=== PATIENT | female | born 1960 | race African-American/Black ===

== ENCOUNTER 2017-08-17 07:44 | Emergency (ER) | payer BC, SELFPAY ==
--- NOTE | 2017-08-17 08:22 | RAD ---
TWO VIEWS OF THE CHEST: COMPARISON: 02/23/2017 HISTORY: Chest pain and asthma. FINDINGS: Two views of the chest show normal sized cardiomediastinal silhouette. There is no evidence of conso lidation, mass, or pleural effusion. The bones are unremarkable. IMPRESSION: No evidence of acute cardiopulmonary disease. POS: [facility]
[2017-08-17] MEDS ORDERED: methylPREDNISolone Sod Succ/PF 125 MG/2 ML VIAL ONE (08:48)
[2017-08-17] MEDS ORDERED: Water For Inject, Bacteriostat 30 ML ONE (08:49)
== END 2017-08-17 09:35 | disposition home or self-care (01) ==
LOC: ERS 07:44
DX: J45.901 Unspecified asthma with (acute) exacerbation (principal); I10 Essential (primary) hypertension; Z79.899 Other long term (current) drug therapy
CPT/HCPCS: 71020; 93005; 94640; 96372; J2930; J7620

== ENCOUNTER 2018-03-17 19:00 | Inpatient (IN) | payer BC, SELFPAY ==
[2018-03-17] MEDS ORDERED: Lidocaine Viscous Sol 2% 15 ml UD Cup ONE (19:28)
[2018-03-17 20:22] LABS: #Basophils 0.1 thou/uL (0.0-0.2); #Eosinphils 0.1 thou/uL (0.0-0.7); #Lymphocytes 2.6 thou/uL (1.20-3.40); #Monocytes 0.7 thou/uL (0.11-0.59); #Neutrophils 3.5 thou/uL (1.40-6.50); %Basophils 1.3 % (0.0-1.0); %Lymphocytes 36.7 % (21.0-51.0); %Monocytes 10.2 % (0.0-10.0); %Neutrophils 49.8 % (42.0-75.0); Hemoglobin 13.4 g/dL (12.0-16.0); Mean Corpuscular Hemoglobin 30.7 pg (27.0-31.0); Mean Corpuscular Volume 87.6 fl (81.0-99.0); Mean Platelet Volume 8.7 fL (7.4-10.4); Platelet Count 204 thou/uL (130-400); RBC Distribution Width 11.7 % (11.5-14.5); Red Blood Cell (RBC) Count 4.36 mill/uL (4.20-5.40)
[2018-03-17] MEDS ORDERED: Ketorolac Tromethamine 30 MG/ML VIAL ONE (20:24)
[2018-03-17 20:41] LABS: ALT (SGPT) 59 U/L (8-55); AST (SGOT) 53 U/L (5-34); Albumin 4.2 g/dL (3.5-5.0); Alkaline Phosphatase 160 U/L (40-150); Anion Gap 24 mmol/L (10-20); BUN (Urea Nitrogen) 22 mg/dL (9.8-20.1); Bilirubin, Total 0.6 mg/dL (0.2-1.2); Calc. Creatinine Clearance 0 mL/min (70-130); Calcium 10.1 mg/dL (7.8-10.44); Carbon Dioxide 12 mmol/L (22-29); Chloride 100 mmol/L (98-107); Estimated GFR-MDRD 47; Globulin 4.4 g/dL (2.4-3.5); Protein, Total 8.6 g/dL (6.0-8.3); Sodium 131 mmol/L (136-145)
[2018-03-17 20:43] LABS: Glucose 555 mg/dL (70-105)
[2018-03-17 20:46] LABS: CKMB 2.5 ng/mL (0-6.6); Troponin I Less than 0.010 ng/mL (< 0.028)
[2018-03-17] MEDS ORDERED: Insulin Regular 300 UNITS/3 ML VIAL ONE (21:54)
[2018-03-17] MEDS ORDERED: Insulin Regular 100 units/100 ml in NS IVPB SCH (22:00)
[2018-03-17] MEDS ORDERED: Acetaminophen 325 MG TAB PO PRN (22:31)
[2018-03-17] MEDS ORDERED: Nitroglycerin 0.4 MG TAB (25 Tab Bottle) SL PRN (22:31)
[2018-03-17] MEDS ORDERED: cloNIDine 0.1 MG TAB PO PRN (22:31)
[2018-03-17] MEDS ORDERED: Lorazepam 2 MG/ML VIAL SLOW IVP PRN (22:31)
[2018-03-17] MEDS ORDERED: D5 1/2 NS w/20 mEq KCL 1,000 ML IV PRN (22:31)
[2018-03-17] MEDS ORDERED: Diabetic Tussin 200 MG/10 ML UDCUP PO PRN (22:31)
[2018-03-17] MEDS ORDERED: Loratadine 10 MG TAB PO PRN (22:31)
[2018-03-17] MEDS ORDERED: Dextrose 5 %-0.45 % NaCl 1,000 ML IV PRN (22:31)
[2018-03-17] MEDS ORDERED: hydrALAZINE 20 MG/ML VIAL SLOW IVP PRN (22:31)
[2018-03-17] MEDS ORDERED: Bisacodyl 5 MG TAB PO PRN (22:31)
[2018-03-17] MEDS ORDERED: NS 0.9% w/ 20 MEQ KCL 1,000 ML IV PRN (22:31)
[2018-03-17] MEDS ORDERED: Sodium Chloride 0.9% 1,000 ML IV PRN ×4 (22:31)
[2018-03-17] MEDS ORDERED: CCU Electrolyte Replacement 1 EACH IVPB ONE (22:31)
[2018-03-17] MEDS ORDERED: Benzonatate 100 MG CAP PO PRN (22:31)
[2018-03-17] MEDS ORDERED: Ondansetron HCl/PF 4 MG/2 ML Vial IVP PRN (22:31)
[2018-03-17] MEDS ORDERED: Senokot 8.6 MG TAB PO PRN (22:31)
[2018-03-17 22:35] LABS: Bilirubin Negative (Negative); Blood, Urine Negative (Negative); Clarity CLEAR (Clear); Glucose, Urine (Dipstick) >=1000 mg/dL (Negative); Leukocyte Negative (Negative); Nitrite Negative (Negative); Protein, Urine (Dipstick) Negative (Neg-Trace); Specific Gravity, Urine 1.035 (1.002-1.036); Urobilinogen 0.2 mg/dL (0.2-1.0); pH, Urine 5.5 (5.0-9.0)
[2018-03-17 22:49] LABS: Hemoglobin A1c 11.8 % (4.0-6.0)
[2018-03-17] MEDS ORDERED: Potassium Chloride 20 MEQ TAB PO PRN (22:49)
[2018-03-17] MEDS ORDERED: Potassium Chloride 40 MEQ in Premix Bag 1 BAG IVPB PRN (22:49)
[2018-03-17] MEDS ORDERED: Magnesium 2 GM/NS 0.9% 100 ML 2 GM in Premix Bag 1 BAG IVPB PRN (22:49)
[2018-03-17] MEDS ORDERED: Potassium Phosphate 15 MMOL in Sodium Chloride 0.9% 250 ML 250 ML IV PRN (22:49)
[2018-03-17] MEDS ORDERED: Potassium Phosphate 12 MMOL in Sodium Chloride 0.9% 250 ML 250 ML IV PRN (22:49)
[2018-03-17] MEDS ORDERED: Magnesium Oxide 400 MG TAB PO PRN ×2 (22:49)
[2018-03-17] MEDS ORDERED: Potassium Chloride 40 MEQ in Sodium Chloride 0.9% 250 ML 250 ML IVPB PRN (22:49)
[2018-03-17] MEDS ORDERED: Potassium Phosphate 9 MMOL in Sodium Chloride 0.9% 100 ML IVPB PRN (22:49)
[2018-03-17] MEDS ORDERED: CCU ELECTROLYTE REPLACEMENT PROTOCOL FS PRN (22:49)
[2018-03-17 22:53] LABS: Magnesium 2.7 mg/dL (1.6-2.6); Phosphorus 3.6 mg/dL (2.3-4.7)
[2018-03-17 23:13] LABS: Anion Gap 21 mmol/L (10-20); BUN (Urea Nitrogen) 22 mg/dL (9.8-20.1); Calc. Creatinine Clearance 0 mL/min (70-130); Calcium 9.4 mg/dL (7.8-10.44); Carbon Dioxide 11 mmol/L (22-29); Chloride 104 mmol/L (98-107); Estimated GFR-MDRD 50; Glucose 438 mg/dL (70-105); Potassium 4.3 mmol/L (3.5-5.1); Sodium 132 mmol/L (136-145)
[2018-03-17] MEDS: NS 0.9% w/ 20 MEQ KCL 1,000 ML IV PRN (23:42)
[2018-03-18 00:07] VITALS: BMI 38.0
[2018-03-18] MEDS: NS 0.9% w/ 20 MEQ KCL 1,000 ML IV PRN (01:59)
[2018-03-18 03:54] LABS: Anion Gap 15 mmol/L (10-20); BUN (Urea Nitrogen) 16 mg/dL (9.8-20.1); Calc. Creatinine Clearance 118 mL/min (70-130); Calcium 8.1 mg/dL (7.8-10.44); Carbon Dioxide 12 mmol/L (22-29); Chloride 113 mmol/L (98-107); Estimated GFR-MDRD 90; Glucose 189 mg/dL (70-105); Potassium 4.1 mmol/L (3.5-5.1); Sodium 136 mmol/L (136-145)
[2018-03-18 04:34] LABS: Bilirubin Negative (Negative); Blood, Urine Trace (Negative); Clarity CLOUDY (Clear); Glucose, Urine (Dipstick) >=1000 mg/dL (Negative); Leukocyte Moderate (Negative); Nitrite Negative (Negative); Protein, Urine (Dipstick) 30 mg/dL (Neg-Trace); Specific Gravity, Urine 1.031 (1.002-1.036); Urobilinogen 0.2 mg/dL (0.2-1.0); pH, Urine 5.5 (5.0-9.0)
--- NOTE | 2018-03-18 04:34 | HP ---
DATE OF ADMISSION: 03/18/2018 PRIMARY CARE PHYSICIAN: None. CHIEF COMPLAINT: Generalized weakness and polydipsia and sores in the mouth. HISTORY OF PRESENTING ILLNESS: Ms. Sweet is a pleasant 57-year-old female without any known signifi cant past medical history who presented to the emergency room with complaints of mouth irritation, ac tually with past medical history of hypertension. History is mainly obtained by the patient herself and electronic medical records have been reviewed. Case has been discussed with the admitting ER kenzie schmitz. According to Ms. Sweet, she is on medication for hypertension which is under control. She currently does not have a primary care physician. Lately, she has been feeling poorly for about 1 week and corcoran d some sore throat and presented to an urgent care center. There, they did draw some blood work, but she never got the results back. She started to have polydipsia and polyuria and has been drinking l emonade a lot in the last 2 or 3 days. She reported that this burnt her tongue and she started to corcoran ve bumps in the back of her mouth, but she still feels that her mouth is very dry. She started to ge t dizzy when walking and just did not feel very well, so presented to the ER. Upon presentation, she was somewhat tachycardic with a heart rate of 111, but otherwise afebrile and with controlled blood pressure. Initial workup included 12-lead EKG, which showed sinus tachycardia. Labs were drawn and they were consistent with pretty significant diabetic ketoacidosis with anion g ap of 24, BUN of 22, creatinine of 1.41, and blood sugar of 555. She was also found to have mild missael vation of AST, ALT, and alkaline phosphatase. CBC was unremarkable. She was started on insulin drip and I was called for admission. I have since sent for UA and beta hydroxybutyrate levels. Her beta hydroxybutyrate is elevated to 6.57 and urinalysis show glucosuria and ketonuria. She is now being admitted to [facility] for diabetic ketoacidosis. Care has been discussed with the patient. All labs are reviewed as above. PAST MEDICAL HISTORY: Hypertension. PAST SURGICAL HISTORY: None reviewed with the patient. PSYCHIATRIC HISTORY: No anxiety and depression. SOCIAL HISTORY: No history of drug, tobacco, or alcohol abuse. FAMILY HISTORY: Diabetes in both of her sisters and her mother. ALLERGIES: No known medication allergies. CURRENT MEDICATIONS: Losartan, dose unknown. REVIEW OF SYSTEMS: A 12-point review of systems was done and just negative except for those mentione d in the history and physical: Constitutional: Weight loss or gain, ability to conduct usual activi ties. Skin: Rash, itching. Eyes: Double vision, pain. ENT/Mouth: Nose bleeding, neck stiffness, pain, tenderness. Cardiovascular: Palpitations, dyspnea on exertion, orthopnea. Respiratory: Isha rtness of breath, wheezing, cough, hemoptysis, fever, or night sweats. Gastrointestinal: Poor appet ite, abdominal pain, heartburn, nausea, vomiting, constipation, or diarrhea. Genitourinary: Urgency , frequency, dysuria, nocturia. Musculoskeletal: Pain, swelling. Neurologic/Psychiatric: Anxiety, depression. Allergy/Immunologic: Skin rash, bleeding tendency. LABORATORY DATA: CBC is unremarkable. Serum chemistry shows sodium of 131, bicarbonate 12, anion ga p of 24, BUN 22, creatinine 1.41, blood sugar 555, which has improved to 206 at this time. Hemoglobi n A1c was sent and is came back high at 11.8. AST 53, ALT 59, alkaline phosphatase 160. Urinalysis: Glucosuria greater than 1000, ketones 80, beta hydroxybutyrate 6.57. EKG by my review shows sinus tachycardia without any acute ST or T-wave changes. PHYSICAL EXAMINATION: VITAL SIGNS: Most recent vital signs temperature 98, heart rate 99, respirations 18, saturating 95% on room air, blood pressure 108/60. GENERAL: No acute distress, awake, alert, oriented x3. HEENT: Numerous papules on the back of her tongue with some erythema. No pharyngeal erythema. Head is normocephalic, atraumatic. Pupils equal, reactive to light and accommodation. Extraocular movem ent intact. Mucous membrane is slightly dry. NECK: Supple without any lymphadenopathy, JVD, or bruit. CHEST: Clear to auscultation without any wheezing, rales, or rhonchi. CARDIOVASCULAR: Rate and rhythm is regular without any murmur, rubs, or gallops. ABDOMEN: Obese, soft, nontender, nondistended with positive bowel sounds. EXTREMITIES: Free of any cyanosis, clubbing, or edema. NEUROLOGIC: Nonfocal. SKIN: Free of any rashes or bruises. I feel warm and dry to touch. PSYCHIATRIC: Normal affect. IMPRESSION AND PLAN: 1. Diabetic ketoacidosis. The patient will be admitted to [facility] on diabetic ketoacidosis protocol. We will monitor BMP every 4 hours as well as beta hydroxybutyrate. She will be treated with insulin drip and IV fluids per protocol. Hemoglobin A1c has been elevated and she will be provided with diab etic education and we will consult dietitian for dietary education for diabetes as well. The patient will need prescription for metformin most likely if her renal insufficiency improves. She will need establishment with a primary care physician for diabetes followup. At this time, we will monitor he r labs and treat her as above. She will be n.p.o. for now. 2. Hypertension currently well controlled. She will be restarted on her home medication when she is able to confirm those. 3. Morbid obesity. Diet and lifestyle modification have been advised. 4. Deep vein thrombosis and gastrointestinal prophylaxis and supportive care and p.r.n. medications. DISPOSITION: Ms. Sweet is currently being admitted to the hospital for new diagnosis of diabetes me llitus on presentation with diabetic ketoacidosis. Estimated length of stay is at least 2-3 midnight . Further management will depend upon her clinical course.
[2018-03-18 04:38] LABS: Bacteria/HPF None Seen HPF (None Seen); Hyaline Casts/LPF 0-3 HYALINE CAST LPF (0-3 Hyaline); RBC/HPF 0-3 HPF (0-3); Squamous Epithelial 0-3 HPF (0-3)
[2018-03-18 07:04] LABS: Anion Gap 8 mmol/L (10-20); BUN (Urea Nitrogen) 13 mg/dL (9.8-20.1); Calc. Creatinine Clearance 125 mL/min (70-130); Calcium 8.1 mg/dL (7.8-10.44); Carbon Dioxide 17 mmol/L (22-29); Chloride 113 mmol/L (98-107); Estimated GFR-MDRD Greater than 90; Glucose 213 mg/dL (70-105); Potassium 4.1 mmol/L (3.5-5.1); Sodium 134 mmol/L (136-145)
--- NOTE | 2018-03-18 08:44 | ULT ---
GALLBLADDER ULTRASOUND: INDICATION: Elevated liver function tests. FINDINGS: Gallbladder has a normal appearance. No evidence of gallstones. Common duct is normal caliber. Vis ualized pancreas, liver, and right kidney appear unremarkable as imaged on this study. IMPRESSION: Unremarkable gallbladder ultrasound. POS: [facility]
[2018-03-18] MEDS ORDERED: Chloraseptic Spray 180 ml Bottle PO PRN (09:36)
[2018-03-18] MEDS ORDERED: Dextrose 50% Abboject 50 ML SYRINGE SLOW IVP PRN (09:36)
[2018-03-18] MEDS ORDERED: Mag-Al 1200 mg/1200 mg/30 ML UDCUP PO PRN (09:36)
[2018-03-18] MEDS ORDERED: Artificial Tears 18 DROP/0.9 ML EA EYE PRN (09:36)
[2018-03-18] MEDS ORDERED: HumaLOG 300 UNITS/3 ML VIAL SC PRN (09:36)
[2018-03-18] MEDS ORDERED: Eucerin (Mineral Oil/Petrolatum,White) 30 gm Jar TOP PRN (09:36)
[2018-03-18] MEDS ORDERED: Dextrose 5% in Water 1,000 ML IV PRN (09:36)
[2018-03-18] MEDS ORDERED: Insulin NPH/Reg Insulin Hm 300 UNITS/3 ML VIAL SC SCH ×2 (09:45→21:00)
[2018-03-18] MEDS: Sodium Chloride 0.9% 1,000 ML IV SCH ×2 (11:19→23:49)
--- NOTE | 2018-03-18 13:14 | PDOC.PN ---
- Subjective Encounter Start Date: 03/18/18 Encounter Start Time: 08:50 -: old records requested/rev Patient seen and examined for DKA. No new complaints. No overnight events - Objective MAR Reviewed: Yes Vital Signs & Weight: Vital Signs (12 hours) Temp Pulse Resp BP BP Pulse Ox 03/18/18 10:58 97.8 F 91 17 124/80 94 L 03/18/18 08:00 98.1 F 93 16 03/18/18 07:24 98.1 F 93 16 122/77 94 L 03/18/18 04:00 97.2 F L 96 17 96/66 95 03/18/18 02:00 99 108/60 I&O: 03/17/18 03/18/18 03/19/18 06:59 06:59 06:59 Intake Total 3180 250 Output Total 500 1350 Balance 2680 -1100 Result Diagrams: 03/17/18 20:10 03/18/18 06:32 Additional Labs: Accuchecks 03/18/18 03/18/18 03/18/18 09:57 09:15 08:07 POC Glucose 192 H 194 H 199 H 03/18/18 03/18/18 03/18/18 07:00 05:55 05:11 POC Glucose 244 H 203 H 212 H 03/18/18 03/18/18 03/18/18 04:04 03:03 01:57 POC Glucose 188 H 206 H 229 H 03/18/18 03/17/18 01:00 23:31 POC Glucose 479 H 338 H EKG Reviewed by me: Yes (nsr) Phys Exam - Physical Examination Constitutional: NAD HEENT: PERRLA, moist MMs, sclera anicteric, oral pharynx no lesions Neck: no nodes, no JVD, supple, full ROM Respiratory: no wheezing, no rales, no rhonchi Cardiovascular: RRR, no significant murmur, no rub Gastrointestinal: soft, non-tender, no distention, positive bowel sounds Musculoskeletal: no edema, pulses present Neurological: non-focal, normal sensation, moves all 4 limbs Lymphatic: no nodes Psychiatric: normal affect, A&O x 3 Skin: no rash, normal turgor Dx/Plan (1) Abnormal LFTs Code(s): R94.5 - ABNORMAL RESULTS OF LIVER FUNCTION STUDIES Status: Acute (2) Acute kidney failure Status: Resolved (3) DKA (diabetic ketoacidoses) Code(s): E13.10 - OTH DIABETES MELLITUS WITH KETOACIDOSIS WITHOUT COMA Status : Resolved (4) Hyponatremia Code(s): E87.1 - HYPO-OSMOLALITY AND HYPONATREMIA Status: Resolved (5) Obesity (BMI 30-39.9) Code(s): E66.9 - OBESITY, UNSPECIFIED Status: Chronic (6) New onset type 2 diabetes mellitus Code(s): E11.9 - TYPE 2 DIABETES MELLITUS WITHOUT COMPLICATIONS Status: Acute - Plan cont current plan of care, plan discussed w/ family * now will dc insulin drip * start insulin 70/30, 15 unit sc bid * accucheck q 4 hourly and humalog as per sliding scale * transfer to medical floor * continue IVF at slow rate * medication reviewed as below * symptomatic treatment * dietary consult and diabetes teaching. Review of Systems - Review of Systems Eyes: negative: Pain, Vision Change, Conjunctivae Inflammation, Eyelid Inflammation, Redness, Other ENT: negative: Ear Pain, Ear Discharge, Nose Pain, Nose Discharge, Nose Congestion, Mouth Pain, Mouth Swelling, Throat Pain, Throat Swelling, Other Respiratory: negative: Cough, Dry, Shortness of Breath, Hemoptysis, SOB with Excertion, Pleuritic Pain, Sputum, Wheezing Cardiovascular: negative: chest pain, palpitations, orthopnea, paroxysmal nocturnal dyspnea, edema, light headedness, other Gastrointestinal: negative: Nausea, Vomiting, Abdominal Pain, Diarrhea, Constipation, Melena, Hematochezia, Other Genitourinary: negative: Dysuria, Frequency, Incontinence, Hematuria, Retention , Other Musculoskeletal: negative: Neck Pain, Shoulder Pain, Arm Pain, Back Pain, Hand Pain, Leg Pain, Foot Pain, Other Skin: negative: Rash, Lesions, Dimitris, Bruising, Other - Medications/Allergies Allergies/Adverse Reactions: Allergies Allergy/AdvReac Type Severity Reaction Status Date / Time No Known Drug Allergies Allergy Verified 03/18/18 00:04 Medications: Current Medications Acetaminophen (Tylenol) 650 mg PO Q4H PRN PRN Reason: Headache/Fever or Mild Pain Al Hydroxide/Mg Hydroxide (Maalox) 15 ml PO Q4H PRN PRN Reason: Heartburn or Indigestion Artificial Tears (Tears Naturale) 0 drop EA EYE PRN PRN PRN Reason: Dry Eyes Benzonatate (Tessalon) 100 mg PO Q4H PRN PRN Reason: Cough Bisacodyl (Dulcolax) 10 mg PO DAILYPRN PRN PRN Reason: Constipation Clonidine (Catapres) 0.1 mg PO Q4H PRN PRN Reason: Systolic BP > 160 Dextrose/Water (Dextrose 50%) 25 gm SLOW IVP PRN PRN PRN Reason: Hypoglycemia Famotidine (Pepcid) 20 mg PO BID [facility] Glucagon (Glucagon) 1 mg IM PRN PRN PRN Reason: Hypoglycemia Guaifenesin (Robitussin Sf) 200 mg PO Q4H PRN PRN Reason: Cough Hydralazine HCl (Apresoline) 10 mg SLOW IVP Q4H PRN PRN Reason: Systolic BP > 170 Dextrose/Water (D5w) 1,000 mls @ 0 mls/hr IV .Q0M PRN; As Directed PRN Reason: Hypoglycemia Sodium Chloride (Normal Saline 0.9%) 1,000 mls @ 75 mls/hr IV .[id number] [facility] Last Admin: 03/18/18 11:19 Dose: 1,000 mls Insulin Human Isoph/Insulin Regular (Humulin 70/30) 15 units SC BID [facility] Insulin Human Lispro (Humalog) 0 units SC .MODERATE SLIDING SC PRN PRN Reason: Moderate Correctional Scale Insulin Human Lispro (Humalog) 0 units SC .BEDTIME SLIDING SC PRN PRN Reason: Bedtime Correctional Scale Loratadine (Claritin) 10 mg PO DAILYPRN PRN PRN Reason: Sinus Symptoms Mineral Oil/White Petrolatum (Eucerin Cream) 0 gm TOP BIDPRN PRN PRN Reason: Dry Skin Nitroglycerin (Nitrostat) 0.4 mg SL Q5MIN PRN PRN Reason: Chest Pain Ondansetron HCl (Zofran) 4 mg IVP Q6H PRN PRN Reason: Nausea/Vomiting Phenol (Chloraseptic Baxter 180 Ml Bot) 0 ml PO PRN PRN PRN Reason: Sore Throat Senna (Senokot) 2 tab PO HSPRN PRN PRN Reason: Constipation Sodium Chloride (Flush - Normal Saline) 10 ml IVF Q12HR [facility] Sodium Chloride (Flush - Normal Saline) 10 ml IVF PRN PRN PRN Reason: Saline Flush Tramadol HCl (Ultram) 50 mg PO Q4H PRN PRN Reason: Moderate Pain (4-6)
[2018-03-18] MEDS: HumaLOG 300 UNITS/3 ML VIAL SC PRN ×2 (14:20→17:53)
[2018-03-18] MEDS: traMADol HCl 50 MG TAB PO PRN (14:26)
[2018-03-18] MEDS: Famotidine 20 MG TAB PO SCH (20:55)
[2018-03-19 04:38] LABS: Anion Gap 9 mmol/L (10-20); BUN (Urea Nitrogen) 5 mg/dL (9.8-20.1); Calc. Creatinine Clearance 158 mL/min (70-130); Calcium 8.3 mg/dL (7.8-10.44); Carbon Dioxide 18 mmol/L (22-29); Chloride 113 mmol/L (98-107); Estimated GFR-MDRD Greater than 90; Glucose 244 mg/dL (70-105); Potassium 3.8 mmol/L (3.5-5.1); Sodium 136 mmol/L (136-145)
[2018-03-19] MEDS ORDERED: Insulin NPH/Reg Insulin Hm 300 UNITS/3 ML VIAL SC SCH (08:00)
[2018-03-19] MEDS: traMADol HCl 50 MG TAB PO PRN (08:21)
[2018-03-19] MEDS: Famotidine 20 MG TAB PO SCH ×2 (08:22→20:16)
[2018-03-19] MEDS ORDERED: Insulin Regular 300 UNITS/3 ML VIAL SC PRN (10:09)
[2018-03-19] MEDS ORDERED: Cipro 250 MG TAB PO SCH (10:30)
[2018-03-19] MEDS ORDERED: glyBURIDE 5 MG TAB PO SCH (10:45)
[2018-03-19] MEDS ORDERED: metFORMIN 500 MG TAB PO SCH (10:45)
--- NOTE | 2018-03-19 12:40 | PDOC.PN ---
- Subjective Encounter Start Date: 03/19/18 Encounter Start Time: 08:00 Patient seen and examined for DKA, pt does not want to take insulin and wanted to try oral meds she has UTI symptoms. No new complaints. No overnight events - Objective MAR Reviewed: Yes Vital Signs & Weight: Vital Signs (12 hours) Temp Pulse Resp BP Pulse Ox 03/19/18 11:21 97.9 F 96 18 124/78 95 03/19/18 08:00 97.9 F 91 18 97 03/19/18 07:14 97.9 F 91 18 118/82 97 03/19/18 04:00 98.3 F 85 20 110/74 99 I&O: 03/18/18 03/19/18 03/20/18 06:59 06:59 06:59 Intake Total 3180 1288 Output Total 500 1950 Balance 2680 -662 Result Diagrams: 03/17/18 20:10 03/19/18 03:45 Additional Labs: Accuchecks 03/19/18 03/19/18 03/19/18 11:28 08:28 05:23 POC Glucose 314 H 293 H 255 H 03/19/18 03/18/18 03/18/18 00:01 20:51 17:54 POC Glucose 277 H 305 H 193 H 03/18/18 13:57 POC Glucose 317 H Phys Exam - Physical Examination Constitutional: NAD HEENT: PERRLA, moist MMs, sclera anicteric Neck: no JVD, supple Respiratory: no wheezing, no rales, no rhonchi Cardiovascular: RRR, no significant murmur, no rub Gastrointestinal: soft, non-tender, no distention, positive bowel sounds Musculoskeletal: no edema, pulses present Neurological: non-focal, normal sensation, moves all 4 limbs Lymphatic: no nodes Psychiatric: normal affect, A&O x 3 Skin: no rash, normal turgor Dx/Plan (1) Abnormal LFTs Code(s): R94.5 - ABNORMAL RESULTS OF LIVER FUNCTION STUDIES Status: Acute (2) Acute kidney failure Status: Resolved (3) DKA (diabetic ketoacidoses) Code(s): E13.10 - OTH DIABETES MELLITUS WITH KETOACIDOSIS WITHOUT COMA Status : Resolved (4) Hyponatremia Code(s): E87.1 - HYPO-OSMOLALITY AND HYPONATREMIA Status: Resolved (5) Obesity (BMI 30-39.9) Code(s): E66.9 - OBESITY, UNSPECIFIED Status: Chronic (6) New onset type 2 diabetes mellitus Code(s): E11.9 - TYPE 2 DIABETES MELLITUS WITHOUT COMPLICATIONS Status: Acute (7) UTI (urinary tract infection) Status: Acute - Plan cont current plan of care, continue antibiotics * will change accucheck achs * give human regular insulin as per aggressive sliding scale * will start glyburide 5 mg po bid and metformin 1000 mg po bid * add cipro po for UTI * medication reviewed as below * symptomatic treatment * will monitor today. Review of Systems - Review of Systems Constitutional: negative: fever, chills, sweats, weakness, malaise, other Eyes: negative: Pain, Vision Change, Conjunctivae Inflammation, Eyelid Inflammation, Redness, Other ENT: negative: Ear Pain, Ear Discharge, Nose Pain, Nose Discharge, Nose Congestion, Mouth Pain, Mouth Swelling, Throat Pain, Throat Swelling, Other Respiratory: negative: Cough, Dry, Shortness of Breath, Hemoptysis, SOB with Excertion, Pleuritic Pain, Sputum, Wheezing Cardiovascular: negative: chest pain, palpitations, orthopnea, paroxysmal nocturnal dyspnea, edema, light headedness, other Gastrointestinal: negative: Nausea, Vomiting, Abdominal Pain, Diarrhea, Constipation, Melena, Hematochezia, Other Genitourinary: Dysuria. negative: Frequency, Incontinence, Hematuria, Retention , Other Musculoskeletal: negative: Neck Pain, Shoulder Pain, Arm Pain, Back Pain, Hand Pain, Leg Pain, Foot Pain, Other Skin: negative: Rash, Lesions, Dmiitris, Bruising, Other - Medications/Allergies Allergies/Adverse Reactions: Allergies Allergy/AdvReac Type Severity Reaction Status Date / Time No Known Drug Allergies Allergy Verified 03/18/18 00:04 Medications: Current Medications Acetaminophen (Tylenol) 650 mg PO Q4H PRN PRN Reason: Headache/Fever or Mild Pain Al Hydroxide/Mg Hydroxide (Maalox) 15 ml PO Q4H PRN PRN Reason: Heartburn or Indigestion Artificial Tears (Tears Naturale) 0 drop EA EYE PRN PRN PRN Reason: Dry Eyes Benzonatate (Tessalon) 100 mg PO Q4H PRN PRN Reason: Cough Bisacodyl (Dulcolax) 10 mg PO DAILYPRN PRN PRN Reason: Constipation Last Admin: 03/19/18 08:24 Dose: 10 mg Ciprofloxacin (Cipro) 500 mg PO BID@0600,2000 [facility] Clonidine (Catapres) 0.1 mg PO Q4H PRN PRN Reason: Systolic BP > 160 Dextrose/Water (Dextrose 50%) 25 gm SLOW IVP PRN PRN PRN Reason: Hypoglycemia Famotidine (Pepcid) 20 mg PO BID [facility] Last Admin: 03/19/18 08:22 Dose: 20 mg Glucagon (Glucagon) 1 mg IM PRN PRN PRN Reason: Hypoglycemia Glyburide (Diabeta) 5 mg PO BID [facility] Guaifenesin (Robitussin Sf) 200 mg PO Q4H PRN PRN Reason: Cough Hydralazine HCl (Apresoline) 10 mg SLOW IVP Q4H PRN PRN Reason: Systolic BP > 170 Dextrose/Water (D5w) 1,000 mls @ 0 mls/hr IV .Q0M PRN; As Directed PRN Reason: Hypoglycemia Insulin Human Regular (Humulin R) 0 units SC .AGGRESSIVE SLIDING PRN PRN Reason: Aggressive Sliding Scale Insulin Human Regular (Humulin R) 0 units SC .BEDTIME SLIDING SC PRN PRN Reason: Bedtime Correctional Scale Loratadine (Claritin) 10 mg PO DAILYPRN PRN PRN Reason: Sinus Symptoms Metformin HCl (Glucophage) 1,000 mg PO BID-[facility] Mineral Oil/White Petrolatum (Eucerin Cream) 0 gm TOP BIDPRN PRN PRN Reason: Dry Skin Nitroglycerin (Nitrostat) 0.4 mg SL Q5MIN PRN PRN Reason: Chest Pain Ondansetron HCl (Zofran) 4 mg IVP Q6H PRN PRN Reason: Nausea/Vomiting Phenol (Chloraseptic Sebastian 180 Ml Bot) 0 ml PO PRN PRN PRN Reason: Sore Throat Senna (Senokot) 2 tab PO HSPRN PRN PRN Reason: Constipation Sodium Chloride (Flush - Normal Saline) 10 ml IVF Q12HR [facility] Last Admin: 03/19/18 08:25 Dose: Not Given Sodium Chloride (Flush - Normal Saline) 10 ml IVF PRN PRN PRN Reason: Saline Flush Tramadol HCl (Ultram) 50 mg PO Q4H PRN PRN Reason: Moderate Pain (4-6) Last Admin: 03/19/18 08:21 Dose: 50 mg
[2018-03-19] MEDS: Insulin Regular 300 UNITS/3 ML VIAL SC PRN ×2 (12:45→16:56)
[2018-03-19 14:47] LABS: ALT (SGPT) 51 U/L (8-55); AST (SGOT) 51 U/L (5-34); Albumin 3.2 g/dL (3.5-5.0); Alkaline Phosphatase 111 U/L (40-150); Bilirubin, Direct 0.2 mg/dL (0.1-0.3); Bilirubin, Total 0.6 mg/dL (0.2-1.2); Protein, Total 6.2 g/dL (6.0-8.3)
[2018-03-19 14:56] LABS: HBCM Index 0.14 S/CO (0-0.79); HBSAg Index 0.17 S/CO (0-0.99); Hep A IgM AB Non-Reactive (NonReactive); Hep A IgM S/CO 0.07 S/CO (0-0.79); Hep B Surf Ag Non-Reactive S/CO (NonReactive); Hepatitis B Core IGM Abs Non-Reactive (NonReactive)
[2018-03-19 16:42] LABS: Hep C IgG Ab Reflex HepC Qnt (NonReactive)
[2018-03-19 16:43] LABS: Hep C Index 11.95 S/CO (0-0.79)
[2018-03-19] MEDS: metFORMIN 500 MG TAB PO SCH (16:55)
[2018-03-19] MEDS: glyBURIDE 5 MG TAB PO SCH (20:17)
[2018-03-19] MEDS: Cipro 250 MG TAB PO SCH (20:17)
[2018-03-20] MEDS: Cipro 250 MG TAB PO SCH (05:12)
[2018-03-20] MEDS: Insulin Regular 300 UNITS/3 ML VIAL SC PRN (05:12)
[2018-03-20 07:18] VITALS: BP 135/86; TEMP 98.2
[2018-03-20] MEDS: metFORMIN 500 MG TAB PO SCH (07:41)
[2018-03-20] MEDS: Famotidine 20 MG TAB PO SCH (07:42)
[2018-03-20] MEDS: glyBURIDE 5 MG TAB PO SCH (07:42)
--- NOTE | 2018-03-20 12:41 | DIS ---
DATE OF ADMISSION: 03/17/2018 DATE OF DISCHARGE: 03/20/2018 PRIMARY CARE PHYSICIAN: [facility]. DISCHARGE DISPOSITION: Home. PRIMARY DISCHARGE DIAGNOSES: 1. Diabetes ketoacidosis with new onset diabetes type 2. 2. Chronic hepatitis C diagnosed this time. 3. Acute kidney failure, improved. 4. Hyponatremia, improved. 5. Abnormal liver function tests due to hepatitis C. 6. Urinary tract infection. SECONDARY DISCHARGE DIAGNOSES: Hypertension and obesity with BMI 38. PRIMARY PROCEDURE/OPERATION: None. RADIOLOGICAL INVESTIGATION: Abdominal ultrasound was unremarkable. SIGNIFICANT LABORATORY DATA: WBC 7.0, hemoglobin 13.4, platelet 204, AST 51, ALT 51, alkaline phosph atase was 111, albumin 3.2. Hemoglobin A1c 11.8. BMP normal. Urinalysis suggestive of UTI. Ketone s 1.39. Hepatitis C positive. Urine culture grew Streptococcus. DISCHARGE MEDICATIONS: Ciprofloxacin 500 mg p.o. b.i.d. for 5 more days, Pepcid 20 mg p.o. b.i.d., g lyburide 5 mg p.o. b.i.d., Novolin R subcu t.i.d. with meals as per moderate sliding scale, losartan 50 mg p.o. daily, and metformin 1000 mg p.o. b.i.d. CONTRAINDICATIONS: None. CODE STATUS: FULL CODE. INPATIENT CONSULTANTS: None. ALLERGIES: No known drug allergy. DISCHARGE PLAN: Post hospital, the patient will follow up with [facility] in 1 week. The alfredo brown is advised to make appointment with benefits sales consultant for hepatitis C treatment. TEST RESULTS PENDING ON DISCHARGE: None. ALLERGIES: No known drug allergies. HOSPITAL COURSE: A 57-year-old female who was admitted by Dr. Cindi Cristobal, please see her H&P for further detail. She was admitted to [facility] for new onset diabetes tpe 2 with diabetic ketoacidosis. S he was having generalized weakness, polyuria, and polydipsia. She had hyponatremia and acute kidney failure from dehydration. Patient was managed as diabetic ketoacidosis protocol treatment in the CCU . Once diabetic ketoacidosis was resolved, we transferred her to medical floor. This patient is diagnosed with chronic hepatitis C and that is why we advised her to get outpatient G I followup for her hepatitis C treatment. During this admission, the patient was given IV fluid and her renal function improved. Her electrolytes improved. She does not want to continue on long-term insulin therapy and that is why she requested oral diabetic medication and that is why on discharge, we prescribed glyburide, metformin along with human regular insulin as per sliding scale to use. Dietary education was given. Healthy lifestyle measures discussed with the patient. Diabetes educat ion is also given. This patient is also advised to follow up with eye doctor for rule out diabetic r etinopathy. The patient is seen and examined at bedside today. She does not have any complaints. REVIEW OF SYSTEMS: Negative. PHYSICAL EXAMINATION: VITAL SIGNS: Currently, temperature 98.2, pulse 82, respiratory rate 18, saturation 95% on room air, blood pressure 135/86, weight 208 pounds. GENERAL: The patient is currently alert, awake, no acute distress. HEAD: Normocephalic, atraumatic. EYES: Pupils round, reactive to light. Extraocular muscle intact. ENT: Oropharynx within normal limits. Moist mucous membranes. No oral lesion, no pharyngeal erythe ma, no exudate. NECK: Supple, no JVD, no thyromegaly, no carotid bruit. LUNGS: Clear to auscultation without any rhonchi. CARDIAC: S1, S2 regular without any murmur. ABDOMEN: Soft and benign. EXTREMITIES: No edema. NEUROLOGIC: Nonfocal examination. The patient is medically stable for discharge today.
== END 2018-03-20 10:51 | disposition home or self-care (01) | DRG 638 ==
LOC: ERS 19:00 → IMCU/EMU 23:09 → T4-A 03-18 22:16
PROVIDERS: ADMIT Internal Medicine; ATTEND Internal Medicine
DX: E11.10 Type 2 diabetes mellitus with ketoacidosis without coma (principal); N17.9 Acute kidney failure, unspecified; E87.1 Hypo-osmolality and hyponatremia; N39.0 Urinary tract infection, site not specified; I10 Essential (primary) hypertension; E66.01 Morbid (severe) obesity due to excess calories; B18.2 Chronic viral hepatitis C; Z68.38 Body mass index [BMI] 38.0-38.9, adult
CPT/HCPCS: 36415; 36416; 76705; 80048; 80053; 80074; 80076; 81003; 81015; 82010; 82553; 83036; 83735; 84100; 84484; 85025; 87077; 87086; 87522; 93005; 96361; 96365; 96375; 96376; A4216; J1815; J1885; J7050

== ENCOUNTER 2019-01-31 22:13 | Emergency (ER) | payer SELFPAY ==
--- NOTE | 2019-01-31 22:43 | RAD ---
FPortable chest: HISTORY: Chest pain COMPARISON: 02/23/2017 FINDINGS: Lung gomes are clear. Heart and mediastinum appear unremarkable. Vascularity is normal. Visualized osseous structures unremarkable. IMPRESSION: No acute finding
[2019-01-31 23:02] LABS: #Basophils 0.1 thou/uL (0.0-0.2); #Eosinphils 0.2 thou/uL (0.0-0.7); #Lymphocytes 2.4 thou/uL (1.20-3.40); #Monocytes 0.7 thou/uL (0.11-0.59); #Neutrophils 3.8 thou/uL (1.40-6.50); %Basophils 0.7 % (0.0-1.0); %Eosinophils 3.4 % (0.0-10.0); %Lymphocytes 32.9 % (21.0-51.0); %Monocytes 9.9 % (0.0-10.0); %Neutrophils 53.1 % (42.0-75.0); Hemoglobin 11.1 g/dL (12.0-16.0); Mean Corpuscular HGB CONC 32.2 g/dL (32.0-36.0); Mean Corpuscular Hemoglobin 28.7 pg (27.0-31.0); Mean Corpuscular Volume 89.2 fL (78.0-98.0); Mean Platelet Volume 7.6 fL (7.4-10.4); Platelet Count 242 thou/uL (130-400); RBC Distribution Width 12.6 % (11.5-14.5); Red Blood Cell (RBC) Count 3.85 mill/uL (4.20-5.40); White Blood Cell (WBC) Count 7.2 thou/uL (4.8-10.8)
[2019-01-31 23:15] LABS: ALT (SGPT) 34 U/L (8-55); AST (SGOT) 34 U/L (5-34); Alkaline Phosphatase 102 U/L (40-150); Anion Gap 13 mmol/L (10-20); BUN (Urea Nitrogen) 16 mg/dL (9.8-20.1); Calc. Creatinine Clearance 0 mL/min (70-130); Calcium 10.3 mg/dL (7.8-10.44); Carbon Dioxide 22 mmol/L (22-29); Chloride 110 mmol/L (98-107); Estimated GFR-MDRD 87; Globulin 3.6 g/dL (2.4-3.5); Glucose 90 mg/dL (70-105); Lipase 59 U/L (8-78); Potassium 3.8 mmol/L (3.5-5.1); Protein, Total 7.6 g/dL (6.0-8.3); Sodium 141 mmol/L (136-145)
[2019-01-31 23:19] LABS: Bilirubin, Total 0.4 mg/dL (0.2-1.2)
== END 2019-02-01 01:10 | disposition left against medical advice (07) ==
LOC: ERS 22:13
DX: Z53.21 Procedure and treatment not carried out due to patient leaving prior to being seen by health care provider (principal)
CPT/HCPCS: 36415; 71045; 80053; 83690; 84484; 85025; 93005; 94640; J7620

== ENCOUNTER 2019-07-16 18:39 | Emergency (ER) | payer SELFPAY ==
--- NOTE | 2019-07-16 19:14 | RAD ---
RADIOGRAPH CHEST 1 VIEW: DATE: 07/16/2019 HISTORY: 58-year-old female with cough and asthma exacerbation. FINDINGS: The thoracic aorta is tortuous and ectatic. There is no evidence of airspace density, cardiomegaly, p ulmonary edema, or pneumothorax. The lateral costophrenic angles are not effaced. IMPRESSION: 1) No acute pulmonary findings. 2) ectasia of thoracic aorta.
[2019-07-16] MEDS ORDERED: predniSONE 20 MG TAB ONE (20:09)
== END 2019-07-16 19:40 | disposition home or self-care (01) ==
LOC: ERS 18:39
DX: J45.901 Unspecified asthma with (acute) exacerbation (principal); E11.9 Type 2 diabetes mellitus without complications; I10 Essential (primary) hypertension; Z79.84 Long term (current) use of oral hypoglycemic drugs; Z79.899 Other long term (current) drug therapy
CPT/HCPCS: 71045; 93005; 94640; J7512; J7620

== ENCOUNTER 2019-08-09 20:25 | Emergency (ER) | payer SELFPAY ==
[2019-08-09] MEDS ORDERED: Ibuprofen 800 MG TAB ONE (20:59)
--- NOTE | 2019-08-09 21:18 | RAD ---
LEFT SHOULDER: 08/09/19 Three views. HISTORY: Trauma. No fracture or dislocation seen. AC joint normally aligned. IMPRESSION: No acute abnormality. POS: OFF
--- NOTE | 2019-08-09 21:18 | RAD ---
PORTABLE CHEST: 08/09/19 HISTORY: Trauma. Lung gomes are clear. Heart and mediastinum unremarkable. Osseous structures appear intact. IMPRESSION: No acute abnormality. POS: OFF
--- NOTE | 2019-08-09 21:19 | RAD ---
RIGHT KNEE: 08/09/19 Four views. HISTORY: Trauma. No evidence of fracture. No evidence of joint effusion. No osseous abnormality seen. IMPRESSION: No acute findings. POS: OFF
--- NOTE | 2019-08-09 22:02 | CT ---
CT CERVICAL SPINE: 08/09/19 INDICATIONS: Trauma. Moderate degenerative changes are present with loss of disc space and vertebral body osteophytes. De generative changes most pronounced at the C4-5, C5-6 and C6-7 levels. No evidence of cervical spine fracture. IMPRESSION: Degenerative changes of the cervical spine. No acute fracture identified. POS: OFF
--- NOTE | 2019-08-09 22:11 | CT ---
CT THORACIC SPINE: 08/09/19 HISTORY: Trauma. Thoracic vertebrae maintain height and alignment. Moderate degenerative changes are noted. No brissa benedict deformity. No evidence of acute fracture. IMPRESSION: No acute fracture. POS: OFF
== END 2019-08-09 23:20 | disposition home or self-care (01) ==
LOC: ERS 20:25
DX: M25.561 Pain in right knee (principal); J45.909 Unspecified asthma, uncomplicated; I10 Essential (primary) hypertension; E11.9 Type 2 diabetes mellitus without complications; Z79.84 Long term (current) use of oral hypoglycemic drugs; Z79.51 Long term (current) use of inhaled steroids; Z79.899 Other long term (current) drug therapy; V43.52XA Car driver injured in collision with other type car in traffic accident, initial encounter
CPT/HCPCS: 71045; 72125; 72128

== ENCOUNTER 2020-05-13 18:00 | Emergency (ER) | payer OTHER ==
--- NOTE | 2020-05-13 18:39 | RAD ---
RADIOGRAPH CHEST 1 VIEW: 05/13/20 HISTORY: 59-year-old female with chest pain. FINDINGS: The thoracic aorta is tortuous and ectatic. There is no evidence of air space density, pneumothorax, or pulmonary edema. The lateral costophrenic angles are sharp. IMPRESSION: 1) No acute pulmonary findings. 2) Ectasia of thoracic aorta. jn [] POS: JIN
[2020-05-13] MEDS ORDERED: PROVENTIL INHALER 6.7 G (200 INHALATIONS) ONE (18:44)
[2020-05-13] MEDS ORDERED: predniSONE 20 MG TAB ONE (18:44)
[2020-05-13] MEDS ORDERED: Albuterol 200 PUFF (6.7GM INHALER) ONE (18:47)
[2020-05-13 18:53] LABS: Hemoglobin 10.5 g/dL (12.0-16.0); Mean Corpuscular HGB CONC 32.9 g/dL (32.0-36.0); Mean Corpuscular Hemoglobin 27.1 pg (27.0-31.0); Mean Corpuscular Volume 82.3 fL (78.0-98.0); Mean Platelet Volume 7.8 fL (7.4-10.4); Platelet Count 241 thou/uL (130-400); RBC Distribution Width 14.5 % (11.5-14.5); Red Blood Cell (RBC) Count 3.89 mill/uL (4.20-5.40); White Blood Cell (WBC) Count 6.9 thou/uL (4.8-10.8)
[2020-05-13 19:10] LABS: ALT (SGPT) 42 U/L (8-55); AST (SGOT) 41 U/L (5-34); Albumin 4.1 g/dL (3.5-5.0); Alkaline Phosphatase 141 U/L (40-110); Anion Gap 14 mmol/L (10-20); BUN (Urea Nitrogen) 9 mg/dL (9.8-20.1); Bilirubin, Total 0.2 mg/dL (0.2-1.2); CK (CPK) 190 U/L (29-168); Calc. Creatinine Clearance 0 mL/min (70-130); Calcium 9.2 mg/dL (7.8-10.44); Carbon Dioxide 21 mmol/L (22-29); Chloride 109 mmol/L (98-107); Estimated GFR-MDRD Greater than 90; Globulin 3.7 g/dL (2.4-3.5); Glucose 85 mg/dL (70-105); Potassium 4.1 mmol/L (3.5-5.1); Protein, Total 7.8 g/dL (6.0-8.3); Sodium 140 mmol/L (136-145)
[2020-05-13 19:14] LABS: Band 2 % (5-11); Eosinophils 6 % (0-10); Lymphocytes 22 % (21-51); MDiff Complete? YES; Monocytes 7 % (0-10); Neutrophil 62 % (42-75); Platelet Morphology Comment Appears Adequate; Polychromasia SLIGHT = 2-3 cells (100X) (0-2/hpf); Reactive Lymphocytes 1 % (0-10)
== END 2020-05-13 19:53 | disposition short-term general hospital (02) ==
LOC: ERS 18:00
DX: J45.901 Unspecified asthma with (acute) exacerbation (principal); D64.9 Anemia, unspecified; E11.9 Type 2 diabetes mellitus without complications; I10 Essential (primary) hypertension; Z79.84 Long term (current) use of oral hypoglycemic drugs; Z79.899 Other long term (current) drug therapy
CPT/HCPCS: 36415; 71045; 80053; 82550; 84484; 85025; 93005; 94664; J7512

== ENCOUNTER 2021-02-27 17:32 | Emergency (ER) | payer OTHER ==
[2021-02-27] MEDS ORDERED: predniSONE 20 MG TAB ONE (19:07)
== END 2021-02-27 19:10 | disposition home or self-care (01) ==
LOC: ERS 17:32
DX: J45.909 Unspecified asthma, uncomplicated (principal); E11.9 Type 2 diabetes mellitus without complications; I10 Essential (primary) hypertension
CPT/HCPCS: 71045; 93005; J7512

== ENCOUNTER 2021-07-14 07:36 | Outpatient (CLI) | payer OTHER | END 2021-07-14 07:37 | disposition home or self-care (01) | LOC: BICULT 07:36 | PROVIDERS: ATTEND Student in an Organized Health Care Education/Training Program | DX: B19.20 Unspecified viral hepatitis C without hepatic coma (principal) | CPT/HCPCS: 76705 ==

== ENCOUNTER 2024-05-30 16:04 | Emergency (ER) | payer SELFPAY ==
[2024-05-30] MEDS ORDERED: Ketorolac Tromethamine 30 MG (1 mL) VIAL ONE (16:44)
[2024-05-30] MEDS ORDERED: Metoclopramide HCl 10 MG (2 mL) VIAL ONE (16:44)
== END 2024-05-30 16:53 | disposition home or self-care (01) ==
LOC: ERS 16:04
DX: G44.209 Tension-type headache, unspecified, not intractable (principal); I10 Essential (primary) hypertension; E11.9 Type 2 diabetes mellitus without complications; Z79.84 Long term (current) use of oral hypoglycemic drugs; Z79.4 Long term (current) use of insulin
CPT/HCPCS: 96372; 99283; J1885; J2765